=== PATIENT | female | born 1965 | race African-American/Black ===

== ENCOUNTER 2018-02-06 02:16 | Inpatient (IN) | payer MEDICARE, MEDICAID ==
[~2018-02-06] VITALS: Ht 175.3 cm; Wt 104.3 kg
[2018-02-06] VITALS (8 sets, daily range): BP systolic 107–144; BP diastolic 47–81
[~2018-02-06 02:16] MED LIST: ALPR0.25 PO; VIC PO
[2018-02-06] MEDS ORDERED: ALBUTEROL (0.083%) 2.5MG/3ML NEB HHN STA (03:36)
[2018-02-06] MEDS ORDERED: IPRATROPIUM BROMIDE (0.02%) 0.5MG/2.5ML NEB HHN STA (03:36)
[2018-02-06] MEDS ORDERED: METHYLPREDNISOLONE SOD SUCC 125 MG/2 ML VIAL IV STA (03:36)
[2018-02-06] MEDS ORDERED: KETOROLAC 30MG/ML VIAL IV STA (03:36)
[2018-02-06] MEDS ORDERED: MAGNESIUM 2 G PREMIX 50 ML IV ONE (03:45)
[2018-02-06 04:30] LABS: CHLORIDE 100 mEq/L (98-107)
[2018-02-06 04:31] LABS: BASOPHILS % 0.1 % (0.0-2.0); EOSINOPHILS % 0.2 % (0.0-5.0); HEMATOCRIT. 37.8 % (36.0-48.0); LYMPHOCYTES % 13.9 % (20.0-50.0); MEAN CORPUSCULAR HEMOGLOBIN 22.7 pg (28.0-32.0); MEAN CORPUSCULAR VOLUME 71.7 fL (81.0-99.0); MEAN PLATELET VOLUME 8.6 fl (7.4-10.4); MONOCYTES % 6.1 % (2.0-8.0); NEUTROPHILS % 79.7 % (40.0-76.0); PLATELET 196 x1000/uL (130-400); RED BLOOD CELL COUNT 5.27 mill/uL (4.2-5.4); RED CELL DISTRIBUTION WIDTH 15.3 % (11.6-14.6)
[2018-02-06 04:35] LABS: INR 1.1; PARTIAL THROMBOPLASTIN TIME 29.6 sec (23.4-31.0)
[2018-02-06] MEDS ORDERED: CEFTRIAXONE 1 G PREMIX 50 ML IV SCH (04:51)
[2018-02-06] MEDS ORDERED: SODIUM CHLORIDE 0.9% 1000ML BAG (SEPSIS BOLUS) IV ONE (05:00)
[2018-02-06] MEDS ORDERED: AZITHROMYCIN 500 MG in DEXT 5% WATER 250 ML IV SCH (05:00)
[2018-02-06 05:06] LABS: CLARITY URINE CLOUDY (CLEAR); COLOR URINE YELLOW (YELLOW); KETONES URINE TRACE (NEGATIVE); LEUKOCYTE ESTERASE URINE NEGATIVE (NEGATIVE); NITRITE URINE NEGATIVE (NEGATIVE); OCCULT BLOOD URINE NEGATIVE (NEGATIVE); PROTEIN URINE TRACE (NEGATIVE); SPECIFIC GRAVITY URINE 1.028 (1.005-1.030); UROBILINOGEN URINE 0.2 E.U./dL (0.2-1.0)
[2018-02-06] MEDS ORDERED: MORPHINE SULFATE 4 MG/ML CPJ (NOT FOR IM USE) IV ONE ×2 (05:45→06:45)
[2018-02-06] MEDS ORDERED: ONDANSETRON HCL 4MG/2ML VIAL IV ONE ×2 (05:45→06:15)
[2018-02-06] MEDS ORDERED: ASPIRIN 325MG EC TABLET PO SCH (09:00)
[2018-02-06] MEDS ORDERED: IPRATROPIUM/ALBUTEROL 0.5-3(2.5)MG/3ML NEB INH PRN (09:00)
[2018-02-06] MEDS ORDERED: TRAMADOL 50MG TABLET PO PRN (09:00)
[2018-02-06] MEDS ORDERED: DIPHENHYDRAMINE 50MG/ML VIAL IV PRN (09:00)
[2018-02-06] MEDS ORDERED: MAGNESIUM/ALUMINUM HYDROXIDE/SIMETHICONE 30ML UDC PO PRN (09:00)
[2018-02-06] MEDS ORDERED: DOCUSATE SODIUM 100MG CAPSULE PO PRN (09:00)
[2018-02-06] MEDS ORDERED: LORAZEPAM 0.5MG TABLET PO PRN (09:00)
[2018-02-06] MEDS ORDERED: FAMOTIDINE 20MG TABLET PO SCH (09:00)
[2018-02-06] MEDS ORDERED: NITROGLYCERIN 0.4MG TABLET SL SL PRN (09:00)
[2018-02-06] MEDS ORDERED: GUAIFENESIN/DM 600MG/30MG ER TAB 12HR PO SCH (09:00)
[2018-02-06] MEDS ORDERED: ACETAMINOPHEN 325MG TABLET PO PRN (09:00)
[2018-02-06] MEDS ORDERED: ONDANSETRON HCL 4MG/2ML VIAL IV PRN (09:00)
[2018-02-06] MEDS ORDERED: GUAIFENESIN 200MG/10ML SUGAR FREE UDC PO PRN (09:00)
[2018-02-06] MEDS ORDERED: KETOROLAC 15MG/ML VIAL IV PRN (09:00)
[2018-02-06] MEDS ORDERED: ZINC SULFATE 220 MG ( 50 ) CAPSULE PO SCH (09:00)
[2018-02-06] MEDS ORDERED: CLONIDINE 0.1MG TABLET PO PRN (09:00)
[2018-02-06] MEDS ORDERED: NA PHOS,M-B/NA PHOS,DI-BA ENEMA 118ML PR PRN (09:00)
[2018-02-06] MEDS ORDERED: ENOXAPARIN 40MG/0.4ML SYR SUBCUT SCH (09:39)
[2018-02-06] MEDS ORDERED: CARI350T PO (10:36)
[2018-02-06] MEDS ORDERED: ONDANSETRON 4MG ODT PO PRN ×2 (15:19→15:30)
[2018-02-06] MEDS ORDERED: ZOLPIDEM TARTRATE 5MG TABLET PO PRN (21:00)
[2018-02-07] MEDS ORDERED: CEFTRIAXONE 1 G PREMIX 50 ML IV SCH (05:00)
[2018-02-07] MEDS ORDERED: AZITHROMYCIN 500 MG in DEXT 5% WATER 250 ML IV SCH (06:00)
[2018-02-07 11:42] LABS: METHADONE URINE SCREEN NEGATIVE (NEGATIVE)
[2018-02-07 11:43] LABS: *BARBITURATES SCREEN URINE NEGATIVE (NEGATIVE); *BENZODIAZEPINES SCREEN URINE PRESUMTIVE POSITIVE (NEGATIVE); *COCAINE SCREEN URINE NEGATIVE (NEGATIVE); CANNABINOID URINE SCREEN NEGATIVE (NEGATIVE); OPIATES URINE SCREEN PRESUMTIVE POSITIVE (NEGATIVE)
[2018-02-07 11:44] LABS: *AMPHETAMINES SCREEN URINE NEGATIVE (NEGATIVE)
[2018-02-07 12:08] LABS: PHENCYCLIDINE URINE SCREEN NEGATIVE (NEGATIVE)
== END 2018-02-06 16:50 | disposition left against medical advice (07) | DRG 871 ==
LOC: ER 02:16 → 7WST 05:01 → EDBEDREQ 05:05 → EDBEDREQTM 05:05 → CANRESERV 07:01 → ENRESERV 07:01 → SUPCPDRO 08:52
PROVIDERS: ADMIT Internal Medicine; ATTEND Internal Medicine
DX: A41.9 Sepsis, unspecified organism (principal); J18.9 Pneumonia, unspecified organism; J44.1 Chronic obstructive pulmonary disease with (acute) exacerbation; J44.0 Chronic obstructive pulmonary disease with (acute) lower respiratory infection; E83.51 Hypocalcemia; R65.20 Severe sepsis without septic shock; E87.6 Hypokalemia; M19.90 Unspecified osteoarthritis, unspecified site; Z53.21 Procedure and treatment not carried out due to patient leaving prior to being seen by health care provider; Z79.899 Other long term (current) drug therapy
CPT/HCPCS: 36415; 71045; 80053; 80061; 80305; 81003; 83036; 83605; 83880; 84484; 85025; 85610; 85730; 87040; 87086; 93005; 93306; 93970; 94640; 99285; J0456; J0696; J1650; J1885; J2270; J2405; J2930; J3475; J7030; J7060; J7611

== ENCOUNTER 2018-08-23 11:54 | Inpatient (IN) | payer MEDICARE, MEDICAID ==
[~2018-08-23] VITALS: Ht 175.3 cm; Wt 106.1 kg
[~2018-08-23 11:54] MED LIST changes: +S350 PO
[2018-08-23] MEDS ORDERED: SODIUM CHLORIDE 0.9% 1,000 ML IV ONE ×2 (12:37→15:30)
[2018-08-23] MEDS ORDERED: ALBUTEROL (0.083%) 2.5MG/3ML NEB HHN STA (12:37)
[2018-08-23] MEDS ORDERED: IPRATROPIUM BROMIDE (0.02%) 0.5MG/2.5ML NEB HHN STA (12:37)
[2018-08-23] MEDS ORDERED: ONDANSETRON HCL 4MG/2ML INJ IV STA (12:37)
[2018-08-23 13:30] LABS: BASOPHILS % 0.3 % (0.0-2.0); EOSINOPHILS % 4.6 % (0.0-5.0); HEMATOCRIT. 41.3 % (36.0-48.0); HEMOGLOBIN. 13.2 g/dL (12.0-16.0); LYMPHOCYTES % 11.3 % (20.0-50.0); MEAN CORPUSCULAR HEMOGLOBIN 22.7 pg (28.0-32.0); MEAN CORPUSCULAR VOLUME 70.8 fL (81.0-99.0); MEAN PLATELET VOLUME 8.2 fl (7.4-10.4); MONOCYTES % 5.7 % (2.0-8.0); NEUTROPHILS % 78.1 % (40.0-76.0); PLATELET 270 x1000/uL (130-400); RED BLOOD CELL COUNT 5.83 mill/uL (4.2-5.4); RED CELL DISTRIBUTION WIDTH 16.4 % (11.6-14.6)
[2018-08-23 13:37] LABS: CLARITY URINE CLEAR (CLEAR); COLOR URINE YELLOW (YELLOW); KETONES URINE TRACE (NEGATIVE); LEUKOCYTE ESTERASE URINE NEGATIVE (NEGATIVE); NITRITE URINE NEGATIVE (NEGATIVE); OCCULT BLOOD URINE 1+ (NEGATIVE); PH URINE 5.5 (4.5-8.0); PROTEIN URINE NEGATIVE (NEGATIVE); SPECIFIC GRAVITY URINE 1.038 (1.005-1.030)
[2018-08-23 13:38] LABS: CHLORIDE 102 mEq/L (98-107); PROTHROMBIN TIME 10.4 sec (9.1-11.1)
[2018-08-23 13:56] LABS: *AMPHETAMINES SCREEN URINE NEGATIVE (NEGATIVE)
[2018-08-23 13:57] LABS: *BARBITURATES SCREEN URINE NEGATIVE (NEGATIVE); *BENZODIAZEPINES SCREEN URINE NEGATIVE (NEGATIVE); *COCAINE SCREEN URINE NEGATIVE (NEGATIVE); METHADONE URINE SCREEN NEGATIVE (NEGATIVE); OPIATES URINE SCREEN PRESUMTIVE POSITIVE (NEGATIVE); PHENCYCLIDINE URINE SCREEN NEGATIVE (NEGATIVE)
[2018-08-23 13:58] LABS: CANNABINOID URINE SCREEN NEGATIVE (NEGATIVE)
[2018-08-23] MEDS ORDERED: KETOROLAC 30MG/ML VIAL IV ONE (14:00)
[2018-08-23] MEDS ORDERED: METHYLPREDNISOLONE SOD SUCC 125 MG/2 ML VIAL IV STA (15:30)
[2018-08-23] MEDS ORDERED: MORPHINE SULFATE 4 MG/ML CPJ (NOT FOR IM USE) IV STA (15:30)
[2018-08-23] MEDS ORDERED: HYDROCODONE/ACETAMINOPHEN 5/325MG TABLET PO ONE (16:15)
[2018-08-23] MEDS ORDERED: ZOLPIDEM TARTRATE 5MG TABLET PO PRN (17:45)
[2018-08-23] MEDS ORDERED: ACETAMINOPHEN 325MG TABLET PO PRN (17:45)
[2018-08-23] MEDS ORDERED: CLONIDINE 0.1MG TABLET PO PRN (17:45)
[2018-08-23] MEDS ORDERED: LEVOFLOXACIN 500MG PREMIX 100 ML IV SCH (17:45)
[2018-08-23] MEDS ORDERED: NA PHOS,M-B/NA PHOS,DI-BA ENEMA 118ML PR PRN (17:45)
[2018-08-23] MEDS ORDERED: MAGNESIUM/ALUMINUM HYDROXIDE/SIMETHICONE 30ML UDC PO PRN (17:45)
[2018-08-23] MEDS ORDERED: ONDANSETRON HCL 4MG/2ML INJ IV PRN (17:45)
[2018-08-23] MEDS ORDERED: IPRATROPIUM/ALBUTEROL 0.5-3(2.5)MG/3ML NEB INH PRN (17:45)
[2018-08-23] MEDS ORDERED: DOCUSATE SODIUM 100MG CAPSULE PO PRN (17:45)
[2018-08-23] MEDS ORDERED: GUAIFENESIN 200MG/10ML SUGAR FREE UDC PO PRN (17:45)
[2018-08-23] MEDS ORDERED: NITROGLYCERIN 0.4MG TABLET SL SL PRN (17:45)
[2018-08-23] MEDS ORDERED: TRAMADOL 50MG TABLET PO PRN (17:45)
[2018-08-23] MEDS ORDERED: KETOROLAC 15MG/ML VIAL IV PRN (17:45)
[2018-08-23 21:20] VITALS: BP 126/69
[2018-08-23] MEDS ORDERED: PREG100C PO (23:14)
[2018-08-23] MEDS ORDERED: NAPR-1164 PO (23:15)
[2018-08-24] MEDS: LEVOFLOXACIN 500MG PREMIX 100 ML IV SCH (00:16)
[2018-08-24] MEDS: METHYLPREDNISOLONE SOD SUCC 125 MG/2 ML VIAL IV SCH ×3 (00:16→16:38)
[2018-08-24 00:26] VITALS: BP 121/53
[2018-08-24] MEDS: KETOROLAC 15MG/ML VIAL IV PRN ×4 (00:45→20:52)
[2018-08-24 04:00] VITALS: BP 116/57
[2018-08-24] MEDS: IPRATROPIUM/ALBUTEROL 0.5-3(2.5)MG/3ML NEB HHN SCH ×5 (05:58→20:51)
[2018-08-24 07:48] LABS: *AMPHETAMINES SCREEN URINE NEGATIVE (NEGATIVE); *BARBITURATES SCREEN URINE NEGATIVE (NEGATIVE); *BENZODIAZEPINES SCREEN URINE NEGATIVE (NEGATIVE); CANNABINOID URINE SCREEN NEGATIVE (NEGATIVE)
[2018-08-24 07:49] LABS: *COCAINE SCREEN URINE NEGATIVE (NEGATIVE); METHADONE URINE SCREEN NEGATIVE (NEGATIVE)
[2018-08-24 07:53] LABS: OPIATES URINE SCREEN PRESUMTIVE POSITIVE (NEGATIVE)
[2018-08-24 07:58] LABS: PHENCYCLIDINE URINE SCREEN NEGATIVE (NEGATIVE)
[2018-08-24] MEDS ORDERED: PNEUMOCOCCAL 23-VAL P-SAC VAC 0.5 ML IM ONE (08:00)
[2018-08-24] MEDS: ASCORBIC ACID 500 MG TABLET PO SCH ×2 (09:54→20:51)
[2018-08-24] MEDS: ENOXAPARIN 30MG/0.3ML SYR SUBCUT SCH ×2 (09:54→20:51)
[2018-08-24] MEDS: FAMOTIDINE 20MG TABLET PO SCH ×2 (09:55→20:51)
[2018-08-24] MEDS: ASPIRIN 325MG EC TABLET PO SCH (09:55)
[2018-08-24] MEDS ORDERED: INFLUENZA VIRUS VACCINE(AFLURIA) 0.5ML SYR IM ONE (10:00)
[2018-08-24 12:00] VITALS: BP 114/60
[2018-08-24] MEDS: LORAZEPAM 0.5MG TABLET PO PRN ×2 (12:23→22:24)
[2018-08-24 16:00] VITALS: BP 114/68
[2018-08-24] MEDS: CARISOPRODOL 350 MG TABLET PO SCH (16:38)
[2018-08-24] MEDS: GUAIFENESIN/DM 600MG/30MG ER TAB 12HR PO SCH ×2 (16:39→20:51)
[2018-08-24 20:00] VITALS: BP 120/69
[2018-08-25] VITALS: BP 122/69
[2018-08-25] MEDS: LEVOFLOXACIN 500MG PREMIX 100 ML IV SCH (00:43)
[2018-08-25] MEDS: METHYLPREDNISOLONE SOD SUCC 125 MG/2 ML VIAL IV SCH ×2 (00:43→09:34)
[2018-08-25] MEDS: IPRATROPIUM/ALBUTEROL 0.5-3(2.5)MG/3ML NEB HHN SCH ×4 (00:48→12:00)
[2018-08-25 04:00] VITALS: BP 125/67
[2018-08-25] MEDS: KETOROLAC 15MG/ML VIAL IV PRN ×2 (04:18→10:18)
[2018-08-25] MEDS: CARISOPRODOL 350 MG TABLET PO SCH (05:49)
[2018-08-25 08:00] VITALS: BP 124/61
[2018-08-25] MEDS: ENOXAPARIN 30MG/0.3ML SYR SUBCUT SCH (09:00)
[2018-08-25] MEDS: ASCORBIC ACID 500 MG TABLET PO SCH (09:34)
[2018-08-25] MEDS: ASPIRIN 325MG EC TABLET PO SCH (09:34)
[2018-08-25] MEDS: FAMOTIDINE 20MG TABLET PO SCH (09:34)
[2018-08-25 10:58] VITALS: BP 124/61
[2018-08-25 12:00] VITALS: BP 120/69
== END 2018-08-25 12:53 | disposition home or self-care (01) | DRG 189 ==
LOC: ER 11:54 → 6WST 17:26 → ENRESERV 18:05
PROVIDERS: ADMIT Internal Medicine; ATTEND Internal Medicine
DX: J96.00 Acute respiratory failure, unspecified whether with hypoxia or hypercapnia (principal); J44.1 Chronic obstructive pulmonary disease with (acute) exacerbation; M19.90 Unspecified osteoarthritis, unspecified site; G89.29 Other chronic pain; M54.9 Dorsalgia, unspecified; E11.9 Type 2 diabetes mellitus without complications; E66.9 Obesity, unspecified; Z68.34 Body mass index [BMI] 34.0-34.9, adult; Z79.899 Other long term (current) drug therapy
CPT/HCPCS: 36415; 71045; 80061; 80305; 83036; 83880; 84484; 90686; 90732; 93005; 93970; 94640; 96361; 96374; 96375; 99285; J1650; J1885; J1956; J2405; J2930; J7030; J7050; J7611; J7620

== ENCOUNTER 2021-03-27 11:31 | Emergency (ER) | payer BC, MEDICAID ==
[~2021-03-27] VITALS: Ht 175.3 cm; Wt 89.0 kg
[~2021-03-27 11:31] MED LIST changes: +CARI350T28 PO; +NAPR-1164 PO; +PREG100C PO; -S350 PO
[2021-03-27] MEDS ORDERED: KETOROLAC 30MG/ML VIAL IM NR (14:00)
[2021-03-27] MEDS ORDERED: HYDROCODONE/ACETAMINOPHEN 5/325MG TABLET PO NR (14:00)
[2021-03-27 14:25] VITALS: BP 133/80
[2021-03-27] MEDS ORDERED: HYDR-4346 PO ×2 (14:40→14:41)
[2021-03-27] MEDS ORDERED: ALBU18HF2 IH ×2 (14:40→14:41)
[2021-03-27] MEDS ORDERED: NAPR-681 PO ×2 (14:40→14:41)
== END 2021-03-27 15:03 | disposition home or self-care (01) ==
LOC: ER 12:04
DX: S43.491A Other sprain of right shoulder joint, initial encounter (principal); G89.29 Other chronic pain; M54.9 Dorsalgia, unspecified; J20.9 Acute bronchitis, unspecified; X50.9XXA Other and unspecified overexertion or strenuous movements or postures, initial encounter; Y93.89 Activity, other specified; Y92.89 Other specified places as the place of occurrence of the external cause; Y99.8 Other external cause status; Z79.899 Other long term (current) drug therapy
CPT/HCPCS: 71045; 73030; 96372; 99284; J1885

== ENCOUNTER 2023-10-23 18:31 | Emergency (ER) | payer MEDICARE, MEDICAID ==
[~2023-10-23] VITALS: Ht 165.1 cm; Wt 85.0 kg
[~2023-10-23 18:31] MED LIST changes: +ALBU18HF2 IH; +HYDR-4346 PO; +NAPR-681 PO
[2023-10-23 18:39] VITALS: BP 130/88; TEMP 98.4
[2023-10-23] MEDS ORDERED: ALBUTEROL (0.083%) 2.5MG/3ML NEB HHN STA (19:15)
[2023-10-23] MEDS ORDERED: PREDNISONE 20MG TABLET PO STA (19:15)
[2023-10-23] MEDS ORDERED: IPRATROPIUM BROMIDE (0.02%) 0.5MG/2.5ML NEB HHN STA (19:15)
[2023-10-23] MEDS ORDERED: BENZONATATE 200MG CAPSULE PO ONE (19:30)
[2023-10-23 19:51] VITALS: PULSE 74; RESP 20; O2SAT 97
[2023-10-23] MEDS ORDERED: AZITHROMYCIN 500 MG TABLET PO ONE (20:00)
[2023-10-23] MEDS ORDERED: ACETAMINOPHEN WITH CODEINE 300/30MG TABLET PO ONE (21:30)
[2023-10-23] MEDS ORDERED: PREDNISONE 20MG TABLET PO NR (21:30)
[2023-10-23] MEDS ORDERED: D-ME473S50 PO (21:33)
[2023-10-23] MEDS ORDERED: AZIT250T12 MT (21:33)
[2023-10-23] MEDS ORDERED: ALBU6.7H15 INH (21:33)
== END 2023-10-23 21:38 | disposition home or self-care (01) ==
LOC: ER 18:31
DX: R05.9 Cough, unspecified (principal); J45.909 Unspecified asthma, uncomplicated; Z98.890 Other specified postprocedural states; Z20.822 Contact with and (suspected) exposure to COVID-19
CPT/HCPCS: 99284; 71045; 87426; 87804 ×2; 94640; J7512